=== PATIENT | female | born 1980 | race African-American/Black ===

== ENCOUNTER 2017-06-04 15:17 | Emergency (ER) | payer MEDICAID ==
[~2017-06-04] VITALS: Ht 160 cm; Wt 92.5 kg
[2017-06-04 15:23] VITALS: BP 139/87
[2017-06-04 15:58] LABS: HEMATOCRIT 37.4 % (34.6-47.8); HEMOGLOBIN 12.1 g/dL (11.7-16.4); WHITE BLOOD COUNT 5.4 x10^3/uL (3.4-10)
[2017-06-04] MEDS ORDERED: ONDANSETRON 2MG/ML, 2ML IVPush ONE (16:00)
[2017-06-04] MEDS ORDERED: SODIUM CHLORIDE 0.9% 1,000ML IVBOLUS ONE (16:00)
[2017-06-04 16:02] LABS: BLOOD UREA NITROGEN 9 mg/dL (7-18)
[2017-06-04] MEDS ORDERED: SODIUM CHLORIDE FLUSH 10ML SYR IVF ONE (16:30)
== END 2017-06-04 17:22 | disposition home or self-care (01) ==
LOC: ED 16:51
DX: O26.891 Other specified pregnancy related conditions, first trimester (principal); R10.31 Right lower quadrant pain; R10.32 Left lower quadrant pain; Z3A.01 Less than 8 weeks gestation of pregnancy
CPT/HCPCS: 36415; 76830; 80048; 81001; 82040; 84702; 85025; 86901; 87086; 99285

== ENCOUNTER 2018-11-26 09:17 | Emergency (ER) | payer MEDICAID ==
[~2018-11-26] VITALS: Ht 160 cm; Wt 90.0 kg
[2018-11-26 09:20] VITALS: BP 153/94
[2018-11-26 10:23] LABS: BASOPHILS # (AUTO) 0.03 x10^3/uL (0-0.1); BASOPHILS % (AUTO) 1 % (0-1); EOSINOPHILS # (AUTO) 0.39 x10^3/uL (0-0.4); EOSINOPHILS % (AUTO) 10 % (1-7); LYMPHOCYTES # (AUTO) 0.99 x10^3/uL (1-3.4); LYMPHOCYTES % (AUTO) 25 % (22-44); MD NO; MEAN CORPUSCULAR HGB CONC 32.4 g/dL (32.4-35.8); MEAN CORPUSCULAR VOLUME 77.2 fL (80-100); MEAN PLATELET VOLUME 9.8 fL (7.4-10.4); MONOCYTES # (AUTO) 0.37 x10^3/uL (0.2-0.8); MONOCYTES % (AUTO) 9 % (2-9); NEUTROPHILS # (AUTO) 2.25 x10^3/uL (1.8-6.8); NEUTROPHILS % (AUTO) 56 % (42-75); PLATELET COUNT 197 x10^3/uL (130-400); RED BLOOD COUNT 5.34 x10^6/uL (3.82-5.3); RED CELL DISTRIBUTION WIDTH 13.7 % (9.6-15.2)
[2018-11-26 10:34] LABS: ANION GAP 5 mmol/L (5-15); CALCIUM 8.9 mg/dL (8.5-10.1); CHLORIDE 107 mmol/L (98-107); CREATININE 0.72 mg/dL (0.55-1.02)
--- NOTE | 2018-11-26 11:17 | NUR ---
PT. IS RESTING WITHOUT CONCERNS. NO CHANGES AT THIS TIME.
--- NOTE | 2018-11-26 11:50 | NUR ---
Patient/Caregiver given discharge instructions and they have confirmed that they understand the instructions. Patient ambulatory with steady gait.
== END 2018-11-26 11:51 | disposition home or self-care (01) ==
LOC: ED 10:51
DX: J02.9 Acute pharyngitis, unspecified (principal); F17.210 Nicotine dependence, cigarettes, uncomplicated
CPT/HCPCS: 36415; 71046; 80048; 85025; 99284

== ENCOUNTER 2020-05-20 12:58 | Emergency (ER) | payer MEDICAID ==
[~2020-05-20] VITALS: Ht 160 cm; Wt 90.0 kg
--- NOTE | 2020-05-20 13:20 | NUR ---
PT BROUGHT BACK FROM TRIAGE WITH CHIEF COMPLAINT OF BLADDER/PELVIC PAIN SINCE 4 AM THIS MORNING WITH INTERMITTENT NAUSEA.
[2020-05-20] MEDS ORDERED: MORPHINE SULFATE 4 MG/ML, 1ML ONE (13:27)
[2020-05-20] MEDS ORDERED: ONDANSETRON 2MG/ML, 2ML ONE (13:27)
[2020-05-20] MEDS ORDERED: MORPHINE SULFATE 4 MG/ML, 1ML IVPush PRN (13:30)
[2020-05-20] MEDS ORDERED: ONDANSETRON 2MG/ML, 2ML IVPush ONE (13:30)
[2020-05-20] MEDS ORDERED: SODIUM CHLORIDE FLUSH 10ML SYR IVF ONE (13:30)
[2020-05-20 13:31] LABS: MICROSCOPIC NOT IND
[2020-05-20 13:41] LABS: BASOPHILS # (AUTO) 0.02 x10^3/uL (0-0.1); BASOPHILS % (AUTO) 0 % (0-1); EOSINOPHILS # (AUTO) 0.18 x10^3/uL (0-0.4); EOSINOPHILS % (AUTO) 3 % (1-7); LYMPHOCYTES # (AUTO) 1.61 x10^3/uL (1-3.4); LYMPHOCYTES % (AUTO) 29 % (22-44); MD NO; MEAN CORPUSCULAR HEMOGLOBIN 24.3 pg (27.0-34.8); MEAN CORPUSCULAR HGB CONC 31.2 g/dL (32.4-35.8); MEAN PLATELET VOLUME 9.4 fL (7.4-10.4); MONOCYTES # (AUTO) 0.34 x10^3/uL (0.2-0.8); MONOCYTES % (AUTO) 6 % (2-9); NEUTROPHILS # (AUTO) 3.39 x10^3/uL (1.8-6.8); NEUTROPHILS % (AUTO) 61 % (42-75); PLATELET COUNT 231 x10^3/uL (130-400); RED BLOOD COUNT 5.41 x10^6/uL (3.82-5.3); RED CELL DISTRIBUTION WIDTH 14.6 % (9.6-15.2)
[2020-05-20 13:51] LABS: ALANINE AMINOTRANSFERASE 25 U/L (12-78); ALBUMIN 3.4 g/dL (3.4-5.0); ANION GAP 5 mmol/L (5-15); CALCIUM 8.8 mg/dL (8.5-10.1); CHLORIDE 108 mmol/L (98-107)
[2020-05-20 13:56] LABS: ALKALINE PHOSPHATASE 94 U/L (45-117); TOTAL PROTEIN 7.3 g/dL (6.4-8.2)
--- NOTE | 2020-05-20 13:58 | NUR ---
PT TO ULTRASOUND
--- NOTE | 2020-05-20 14:40 | NUR ---
PT BACK FROM ULTRA SOUND, CALL LIGHT IN REACH. VSS
[2020-05-20 14:45] VITALS: BP 142/89
--- NOTE | 2020-05-20 15:24 | NUR ---
NARAYAN SECURITY RESEARCHER AT BEDSIDE TO DISCUSS POC. PT UNHAPPY WITH DISCUSSION AND REQUESTIING SECOND EVALUATION. AMANDA SAHM AND SALESPERSON SURGICAL APPLIANCES NOTIFIED.
== END 2020-05-20 15:57 | disposition home or self-care (01) ==
LOC: ED 15:15
DX: R10.84 Generalized abdominal pain (principal); R11.0 Nausea; R30.0 Dysuria; F17.200 Nicotine dependence, unspecified, uncomplicated
CPT/HCPCS: 36415; 76830; 80053; 81003; 83690; 84703; 85025; 96374; 96375; 99284; J2270; J2405